=== PATIENT | female | born 1995 | race Hispanic/Latino ===

== ENCOUNTER 2016-06-05 18:16 | Emergency (ER) | payer OTHER ==
[~2016-06-05] VITALS: Ht 170.2 cm; Wt 71.7 kg
--- NOTE | 2016-06-05 19:25 | ED GI/GU/ABDOMINAL COMPLAINT ---
History of Present Illness General Chief Complaint: Abdominal Pain/Flank Pain Stated Complaint: ABD PAIN LLQ,DIZZINESS Source: patient Exam Limitations: no limitations Vital Signs & Intake/Output Vital Signs & Intake/Output Vital Signs Date Time Temp Pulse Resp B/P Pulse O2 O2 Flow FiO2 Ox Delivery Rate 06/05 2034 97.5 75 18 122/63 98 06/05 1845 97.6 77 20 128/82 99 Room Air Allergies Coded Allergies: No Known Allergies (06/05/16) Reconcile Medications No Known Home Medications Triage Note: TRIAGE: PT TO ER C/C LLQ ABD PAIN, DIZZINESS, INTERMITTENT QUEASY STOMACH. ONSET 4 DAYS AGO WITH DIZZINESS. WAS TREATED FOR GASTROENTERITIS END OF APRIL. LMP 05/01/2016 BUT THEN HAD LIGHT PINK SPOTTING 05/25. ?. REPORTS HAD NEGATIVE HOME AND NEGATIVE HCG BY BLOOD DRAW DONE HERE UNDER DR CRUZ ORDERS. DENIES ANY URINARY S/S. Triage Nurses Notes Reviewed? yes ? N Is pt currently ? No Onset: Gradual Duration: constant Timing: recent history Quality/Severity: cramping Severity Numbers: 4 Location: left lower quadrant Radiation: no radiation Activities at Onset: none HPI: Patient is a 20-year-old female with an unremarkable past medical history presents emergency room with a four-day history of gradual onset of persistent moderate left lower quadrant and pelvic cramping pain. Patient hasn't taken any medications for symptoms. Patient was followed up with [facility] [facility] Dr. Parks yesterday received urinalysis negative for . Last menstrual period was 05/01/2016 patient usually has regular menstrual cycles. Last bowel movement was today no blood no melena noted. Patient is able to tolerate by mouth. Denies any fever, chills, vaginal bleeding vaginal discharge dysuria hematuria (ALEX HARTMANN) Past History Travel History Traveled to [place] past 21 day No Medical History Any Pertinent Medical History? see below for history Neurological: NONE EENT: NONE Cardiovascular: NONE Respiratory: NONE Gastrointestinal: GASTROENTERITIS Hepatic: NONE Renal: NONE Musculoskeletal: ANKLE FX X 2 Psychiatric: NONE Endocrine: NONE Blood Disorders: NONE Cancer(s): NONE COURT RECORDER/Reproductive: NONE Surgical History Surgical History: non-contributory Psychosocial History What is your primary language [place] Tobacco Use: Never used ETOH Use: occasional use Illicit Drug Use: denies illicit drug use Family History Hx Contributory? No (ALEX HARTMANN) Review of Systems Review of Systems Constitutional: Reports: no symptoms. EENTM: Reports: no symptoms. Respiratory: Reports: no symptoms. Cardiovascular: Reports: no symptoms. GI: Reports: see HPI, abdominal pain. Denies: bloating, diarrhea, nausea, bloody stool, changes in stool. Genitourinary: Reports: no symptoms. Musculoskeletal: Reports: see HPI. Skin: Reports: no symptoms. Neurological/Psychological: Reports: no symptoms. Hematologic/Endocrine: Reports: no symptoms. Immunologic/Allergic: Reports: no symptoms. All Other Systems: Reviewed and Negative (ALEX HARTMANN) Physical Exam Physical Exam General Appearance: no apparent distress, alert, comfortable Gastrointestinal: normal bowel sounds, soft, MILD LEFT LOWER QUADRANT POINT TENDERNESS, NO RIGHT LOWER QUADRANT TENDERNESS NO REBOUND TENDERNESS NO RIGHT UPPER QUADRANT TENDERNESS NO PERITONEAL SIGNS Comments: Well-developed well-nourished person in no acute distress HEENT: Normal EENT exam, Neck: Supple, no lymphadenopathy, normal range of motion without pain or tenderness Back: Nontender, no CVA tenderness. Cardiovascular: Regular rate and rhythms no murmurs rubs or gallops, normal JVP Respiratory: Chest nontender. No respiratory distress.breath sounds clear to auscultation bilaterally Extremity: No edema, no calf tenderness to palpation, normal and equal pulses. Neuro: Alert oriented x3, motor sensory normal, Skin: No appreciable rash on exposed skin, skin is warm and dry. Psych: Mood and affect is normal, memory and judgment is normal. Core Measures ACS in differential dx? No Severe Sepsis Present: No Septic Shock Present: No (ALEX HARTMANN) Progress Differential Diagnosis: appendicitis, biliary colic, bowel obstruction, colon cancer, cholecystitis, diverticulitis, ectopic , endometritis, esophageal varices, gastritis, hepatitis, hernia, hemorrhoids, ischemic bowel, inflamm bowel dis, intrauterine , kidney stone, Anais-Amena tear, ovarian cyst, ovarian torsion, pancreatitis, PID/cervicitis, peptic ulcer, PUD/ GERD, perforated viscous, SBO, threatened AB, UTI/pyelo Plan of Care: Orders Procedure Date/time Status COMPREHENSIVE METABOLIC PANEL 06/05 1932 Complete CBC WITHOUT DIFFERENTIAL 06/05 1932 Complete URINE 06/05 1924 Complete URINALYSIS 06/05 1924 Complete Laboratory Tests 06/05/161946: Anion Gap 11, Estimated GFR > 60, BUN/Creatinine Ratio 17.1, Glucose 87, Calcium 9.8, Total Bilirubin 0.3, AST 30, ALT 50, Alkaline Phosphatase 98, Total Protein 7.1, Albumin 4.0, Globulin 3.1, Albumin/Globulin Ratio 1.3, CBC w Diff NO MAN DIFF REQ, RBC 4.86, MCV 83.0, MCH 28.3, RDW 13.6, MPV 7.5, Gran % 58.7, Lymphocytes % 30.1, Monocytes % 8.0, Eosinophils % 2.7, Basophils % 0.5, Absolute Granulocytes 5.8, Absolute Lymphocytes 3.0, Absolute Monocytes 0.8 H, Absolute Eosinophils 0.3, Absolute Basophils 0, PUBS MCHC 34.0, Urine Color STRAW, Urine Clarity CLEAR, Urine pH 6.0, Ur Specific [place] 1.025, Urine Protein NEG, Urine Ketones NEG, Urine Nitrite NEG, Urine Bilirubin NEG, Urine Urobilinogen 0.2, Ur Leukocyte Esterase NEG, Ur Microscopic SEDIMENT EXAMINED, Urine RBC 1-3, Ur Epithelial Cells FEW, Urine Bacteria RARE H, Urine Hemoglobin SMALL H, Urine Glucose NEG, Urine Test NEGATIVE Patient on initial examination shows no concerns of ovarian torsion No apparent distress on exam No right lower quadrant pain for concerns of appendicitis at this time Patient declined pain medications when offered Patient's blood work was unremarkable no evidence of . Patient was given ultrasound referral for ovarian cyst evaluation Patient upon discharge looks well no apparent distress and will comply with discharge instructions and had no questions No right lower quadrant pain returns of appendicitis (ALEX HARTMANN) Initial ED EKG: none (ALEX HARTMANN) Departure Departure Disposition: HOME OR SELF CARE Condition: Stable Clinical Impression Primary Impression: Abdominal pain Referrals: PATIENT HAS NO PRIMARY CARE DR (PCP/Family) Additional Instructions: As discussed begin [id number] ibuprofen and/or Tylenol as directed for pain and inflammation. Tomorrow please call the [place] department of radiology central scheduling phone number [phone] to make an appointment for an ultrasound, this will be sent to your [facility] Dr. Parks. If symptoms worsen return to the emergency room. Departure Forms: Customer Survey General Discharge Information Prescriptions: Current Visit Scripts No Known Home Medications (ALEX HARTMANN) PA/BUSINESS ASSISTANT Co-Sign Statement Statement: ED Attending supervision documentation- [] I saw and evaluated the patient. I have also reviewed all the pertinent lab results and diagnostic results. I agree with the findings and the plan of care as documented in the PA's/BUSINESS ASSISTANT's documentation. x I have reviewed the ED Record and agree with the PA's/BUSINESS ASSISTANT's documentation. [] Additions or exceptions (if any) to the PAs/BUSINESS ASSISTANT's note and plan are summarized below: [] (ROSALIND PICHARDO,GLADYS)
[2016-06-05 20:18] LABS: ABSOLUTE BASOPHIL COUNT 0 /CUMM (0.0-0.2); ABSOLUTE EOSINOPHIL COUNT 0.3 /CUMM (0.0-0.7); ABSOLUTE GRANULOCYTE CT 5.8 /CUMM (1.4-6.5); ABSOLUTE MONOCYTE COUNT 0.8 /CUMM (0.10-0.60); BASOPHIL % 0.5 % (0.0-2.0); EOSINOPHIL % 2.7 % (0-5); GRANULOCYTE % 58.7 % (42.2-75.2); HEMATOCRIT 40.3 % (37-47); MEAN CORPUSCULAR HGB 28.3 PG (27.0-31.0); MEAN PLATELET VOLUME 7.5 FL (7.4-10.4); PLATELET COUNT 311 /CUMM (130-400); RBC DISTRIBUTION WIDTH 13.6 % (11.5-14.5); RED BLOOD CELL CT 4.86 /CUMM (4.20-5.40); WHITE BLOOD CELL COUNT 9.9 /CUMM (4.8-10.8)
[2016-06-05 20:35] VITALS: BP 122/63
== END 2016-06-05 21:08 ==
LOC: ERH 18:16
PROVIDERS: Physician Assistant
DX: R10.32 Left lower quadrant pain (principal)
CPT/HCPCS: 81001; 81025

== ENCOUNTER → 2016-10-17 | Day surgery (SDC) | payer OTHER ==
[~2016-10-17] VITALS: Ht 167.6 cm; Wt 74.8 kg
[~2016-10-17] MED LIST: PROGESTERONE
--- NOTE | 2016-10-22 16:25 | Operative Report ---
Operative/Inv Procedure Report Surgery Date: 10/17/16 Name of Procedure: Suction D&C Pre-Operative Diagnosis: An embryonic gestation Post-Operative Diagnosis: Same Estimated Blood Loss: scant Surgeon/Educational Specialist: LEXI OHLDEN MD Anesthesia: moderate sedation Operative/Procedure Note Note: Was brought to the operating room placed on the OR table in the dorsal supine position. She was given adequate anesthesia and repositioned in modified dorsal lithotomy. She was prepped and draped in usual sterile fashion. Weighted speculum inserted into the vagina with help of a Marcio retractor single-tooth tenaculum was attached and she'll lip of the cervix. Cervix was injected with 0.5% Marcaine with epinephrine to have cc in each quadrant. Cervix was serially dilated to accommodate a #8 suction curet was placed into the fundus and activated. Minimal fluid was removed and a small amount of products of conception were removed as well. Sharp curettage followed revealing no remaining tissue. One final pass the suction curet also again revealed no remaining tissue. At this point suction was deactivated and removed the isthmus removed and hemostasis was verified. The patient was awakened and sent to recovery in good condition. All needle, sponge, and is counts were correct at the end of the procedure 2.
== END ==
LOC: STS 01:55
DX: O02.1 Missed abortion (principal)
CPT/HCPCS: J2250